=== PATIENT | male | born 1955 | race Caucasian/White ===

== ENCOUNTER 2024-09-17 22:08 | Inpatient (IN) | payer MEDICARE, MEDICAID ==
[~2024-09-17] VITALS: Ht 185.4 cm; Wt 70.9 kg
[2024-09-17 22:48] LABS: BASOPHILS % (AUTO) 0.6 % (0.0-2.0); EOSINOPHILS # (AUTO) 0.1 K/uL (0.0-0.7); EOSINOPHILS % (AUTO) 1.3 % (0.0-7.0); HEMATOCRIT 34.8 % (36.7-47.1); HEMOGLOBIN 11.5 g/dL (12.5-16.3); LYMPHOCYTES # (AUTO) 1.5 K/uL (0.8-4.8); LYMPHOCYTES % (AUTO) 28.5 % (20.5-51.5); MEAN CORPUSCULAR HEMOGLOBIN 29.7 uug (23.8-33.4); MEAN CORPUSCULAR HGB CONC 33 g/dL (32.5-36.3); MEAN CORPUSCULAR VOLUME 89.9 fL (73.0-96.2); MONOCYTES # (AUTO) 0.5 K/uL (0.1-1.30); MONOCYTES % (AUTO) 9.2 % (0.0-11.0); NEUTROPHILS # (AUTO) 3.2 K/uL (1.8-8.9); NEUTROPHILS % (AUTO) 60.4 % (38.5-71.5); PLATELET COUNT (AUTO) 272 K/uL (152-348); RED BLOOD CELL COUNT(AUTO) 3.87 MIL/uL (4.06-5.63); RED CELL DISTRIBUTION WIDTH 12.8 % (12.1-16.2); WHITE BLOOD COUNT (AUTO) 5.2 K/uL (3.6-10.2)
[2024-09-17 22:50] LABS: DIFFERENTIAL COMMENT 1
[2024-09-17 23:00] LABS: CALCIUM 9.3 mg/dL (8.5-10.1); CARBON DIOXIDE 28 mmol/L (21-32); CHLORIDE 107 mmol/L (98-107); CREATININE 1.1 mg/dL (0.6-1.3); GLUCOSE 138 mg/dL (74-106); POTASSIUM 4.1 mmol/L (3.5-5.1); SODIUM SERUM 142 mmol/L (136-145); UREA NITROGEN, BLOOD 27 mg/dL (7-18)
[2024-09-17 23:16] LABS: ALANINE AMINOTRANSFERASE 17 U/L (16-63); ALBUMIN 3.4 g/dL (3.4-5.0); ALKALINE PHOSPHATASE 85 U/L (50-136); ASPARTATE AMINOTRANSFERASE 16 U/L (15-37); BILIRUBIN,TOTAL 0.6 mg/dL (0.2-1.0); NT-PRO BNP 385 pg/mL (0-125)
[2024-09-18] MEDS ORDERED: ACET325T53 PO (00:26)
[2024-09-18] MEDS ORDERED: ASPI-1420 PO (00:27)
[2024-09-18] MEDS ORDERED: ATOR80TA PO (00:29)
[2024-09-18] MEDS ORDERED: CARV12.52 PO (00:30)
[2024-09-18] MEDS ORDERED: CLOP75TA33 PO (00:32)
[2024-09-18] MEDS ORDERED: CYAN-51 PO (00:34)
[2024-09-18] MEDS ORDERED: BISA10SU61 RC (00:35)
[2024-09-18] MEDS ORDERED: NA P133E RC (00:36)
[2024-09-18] MEDS ORDERED: ISOS60TA72 PO (01:17)
[2024-09-18 01:19] LABS: *BILIRUBIN,URIN NEGATIVE (NEGATIVE); *BLOOD, URINE 1+ (NEGATIVE); *CLARITY,URINE CLEAR (CLEAR); *COLOR,URINE YELLOW (YELLOW); *KETONES,URINE NEGATIVE (NEGATIVE); *PROTEIN,URINE TRACE (NEGATIVE); LEUKOCYTE ESTERASE ,URINE NEGATIVE (NEGATIVE); NITRITE, URINE NEGATIVE (NEGATIVE); UGLUCOSE 1+ (NEGATIVE)
[2024-09-18] MEDS ORDERED: LIDO30AD10 TD (01:19)
[2024-09-18] MEDS ORDERED: MEMA21CA2 PO (01:20)
[2024-09-18] MEDS ORDERED: METF-494 PO (01:22)
[2024-09-18] MEDS ORDERED: MAGN400O6 PO (01:25)
[2024-09-18] MEDS ORDERED: POLY119P2 PO (01:26)
[2024-09-18] MEDS ORDERED: NITR0.4T48 SL (01:29)
[2024-09-18] MEDS ORDERED: PANT20TA2 PO (01:35)
[2024-09-18] MEDS ORDERED: RANO500T6 PO (01:36)
[2024-09-18 01:37] LABS: BACTERIA,URINE NONE SEEN /HPF (NONE SEEN); MUCUS,URINE FEW /LPF (0-FEW); RBC,URINE 0-3 /HPF (0-3); SQUAMOUS EPITHELIAL CELL,UR NONE SEEN /HPF (NONE SEEN); WBC,URINE NONE SEEN /HPF (0-3)
[2024-09-18] MEDS ORDERED: TAMS-3 PO (01:38)
[2024-09-18] MEDS ORDERED: ACET325C7 PO (01:42)
[2024-09-18] MEDS: IV NS 1000 ML 1,000 ML IV ONE (02:27)
[2024-09-18] MEDS ORDERED: hydrALAZINE HCL 20 MG/1 ML VIAL ONE (04:48)
[2024-09-18] MEDS ORDERED: MAGNESIUM HYDROXIDE 30 ML LIQUID UDC PO PRN (05:00)
[2024-09-18] MEDS ORDERED: REMEDY ESSENTIAL ZINC PASTE 113 GM TP PRN (05:00)
[2024-09-18] MEDS ORDERED: CEFTRIAXONE /D5W 50ML IVPB **ER PYXIS IV ONE (05:50)
[2024-09-18 05:52] VITALS: BP 140/62; TEMP 97.7; O2SAT 99
[2024-09-18] MEDS: hydrALAZINE HCL 20 MG/1 ML VIAL IV ONE (06:13)
[2024-09-18] MEDS: ACETAMINOPHEN 325 MG TABLET PO PRN (06:33)
[2024-09-18 06:48] LABS: BASOPHILS % (AUTO) 0.6 % (0.0-2.0); EOSINOPHILS # (AUTO) 0.1 K/uL (0.0-0.7); EOSINOPHILS % (AUTO) 1.1 % (0.0-7.0); HEMATOCRIT 37.1 % (36.7-47.1); HEMOGLOBIN 12.6 g/dL (12.5-16.3); LYMPHOCYTES # (AUTO) 1.5 K/uL (0.8-4.8); LYMPHOCYTES % (AUTO) 25.1 % (20.5-51.5); MEAN CORPUSCULAR HEMOGLOBIN 30.4 uug (23.8-33.4); MEAN CORPUSCULAR HGB CONC 34 g/dL (32.5-36.3); MEAN CORPUSCULAR VOLUME 89.8 fL (73.0-96.2); MONOCYTES # (AUTO) 0.5 K/uL (0.1-1.30); MONOCYTES % (AUTO) 8.3 % (0.0-11.0); NEUTROPHILS # (AUTO) 3.8 K/uL (1.8-8.9); NEUTROPHILS % (AUTO) 64.9 % (38.5-71.5); PLATELET COUNT (AUTO) 271 K/uL (152-348); RED BLOOD CELL COUNT(AUTO) 4.13 MIL/uL (4.06-5.63); RED CELL DISTRIBUTION WIDTH 12.8 % (12.1-16.2); WHITE BLOOD COUNT (AUTO) 5.9 K/uL (3.6-10.2)
[2024-09-18 07:00] LABS: DIFFERENTIAL COMMENT 1
[2024-09-18 07:15] LABS: THYROID STIMULATING HORMONE 1.072 mIU/mL (0.358-3.740)
[2024-09-18 07:41] LABS: CALCIUM 9.1 mg/dL (8.5-10.1); CARBON DIOXIDE 27 mmol/L (21-32); CHLORIDE 108 mmol/L (98-107); CREATININE 1.1 mg/dL (0.6-1.3); GLUCOSE 116 mg/dL (74-106); MAGNESIUM 2.1 mg/dL (1.8-2.4); NT-PRO BNP 428 pg/mL (0-125); PHOSPHOROUS 3.1 mg/dL (2.5-4.9); POTASSIUM 3.9 mmol/L (3.5-5.1); SODIUM SERUM 143 mmol/L (136-145); UREA NITROGEN, BLOOD 21 mg/dL (7-18)
[2024-09-18] MEDS: PANTOPRAZOLE SODIUM 40 MG VIAL IV SCH (09:02)
[2024-09-18] MEDS: CEFTRIAXONE 1 G in IV DEXTROSE 5% 50 ML IV ONE (09:02)
[2024-09-18 09:08] VITALS: BP 124/53; TEMP 97.7; O2SAT 100
[2024-09-18] MEDS ORDERED: LIDO1ADH82 TP (10:34)
[2024-09-18] MEDS: MORPHINE SULFATE 2 MG/1 ML DISP.SYRIN IV PRN (12:54)
[2024-09-18] MEDS ORDERED: FLEET ENEMA 133 ML BOTTLE RC PRN (18:15)
[2024-09-18] MEDS ORDERED: NITROGLYCERIN 0.4 MG/TAB BOTTLE SL PRN (18:15)
[2024-09-18] MEDS ORDERED: BISACODYL 10 MG SUPP.RECT RC PRN (18:15)
[2024-09-18] MEDS ORDERED: MIRALAX 17 GM POWD.PACK PO PRN (18:15)
[2024-09-18 20:00] VITALS: BP 145/83; TEMP 98.3; O2SAT 97
[2024-09-18] MEDS: IV NS 1000 ML 1,000 ML IV PRN (20:03)
[2024-09-18] MEDS: LIDOCAINE 5% PATCH TD SCH (20:56)
[2024-09-18] MEDS: MEMANTINE HCL 10 MG TABLET PO SCH (20:56)
[2024-09-18] MEDS: TAMSULOSIN HCL 0.4 MG CAP.SR.24H PO SCH (20:56)
[2024-09-18] MEDS: RANOLAZINE 500 MG TAB.ER.12H PO SCH (20:57)
[2024-09-18] MEDS: CARVEDILOL 6.25 MG TABLET PO SCH (20:57)
[2024-09-18] MEDS: METFORMIN XR 500 MG TAB.SR.24H PO SCH (20:57)
[2024-09-18] MEDS: ATORVASTATIN 40 MG TABLET PO SCH (20:57)
[2024-09-19] VITALS: BP 150/53; TEMP 98; O2SAT 100
[2024-09-19] MEDS: ONDANSETRON 4 MG/2 ML VIAL IV PRN (03:42)
[2024-09-19 04:27] VITALS: BP 155/67; TEMP 98; O2SAT 100
[2024-09-19] MEDS ORDERED: METF-440 PO (07:06)
[2024-09-19 07:34] LABS: BASOPHILS % (AUTO) 0.6 % (0.0-2.0); EOSINOPHILS # (AUTO) 0.1 K/uL (0.0-0.7); EOSINOPHILS % (AUTO) 1.3 % (0.0-7.0); HEMATOCRIT 38.4 % (36.7-47.1); LYMPHOCYTES # (AUTO) 1.3 K/uL (0.8-4.8); LYMPHOCYTES % (AUTO) 22.6 % (20.5-51.5); MEAN CORPUSCULAR HEMOGLOBIN 30.5 uug (23.8-33.4); MEAN CORPUSCULAR HGB CONC 34 g/dL (32.5-36.3); MEAN CORPUSCULAR VOLUME 90.1 fL (73.0-96.2); MONOCYTES # (AUTO) 0.5 K/uL (0.1-1.30); MONOCYTES % (AUTO) 8.3 % (0.0-11.0); NEUTROPHILS # (AUTO) 3.9 K/uL (1.8-8.9); NEUTROPHILS % (AUTO) 67.2 % (38.5-71.5); PLATELET COUNT (AUTO) 264 K/uL (152-348); RED BLOOD CELL COUNT(AUTO) 4.26 MIL/uL (4.06-5.63); RED CELL DISTRIBUTION WIDTH 12.9 % (12.1-16.2); WHITE BLOOD COUNT (AUTO) 5.8 K/uL (3.6-10.2)
[2024-09-19 07:51] LABS: DIFFERENTIAL COMMENT 1
[2024-09-19 07:52] VITALS: BP 147/75; TEMP 97.5; O2SAT 98
[2024-09-19 07:52] LABS: CALCIUM 8.7 mg/dL (8.5-10.1); CARBON DIOXIDE 29 mmol/L (21-32); CHLORIDE 107 mmol/L (98-107); CREATININE 1.1 mg/dL (0.6-1.3); GLUCOSE 121 mg/dL (74-106); MAGNESIUM 2.1 mg/dL (1.8-2.4); PHOSPHOROUS 3.9 mg/dL (2.5-4.9); POTASSIUM 3.8 mmol/L (3.5-5.1); SODIUM SERUM 142 mmol/L (136-145); UREA NITROGEN, BLOOD 17 mg/dL (7-18)
[2024-09-19] MEDS ORDERED: METFORMIN XR 500 MG TAB.SR.24H PO SCH (08:00)
[2024-09-19] MEDS: CLOPIDOGREL 75 MG TABLET PO SCH (08:27)
[2024-09-19] MEDS: ISOSORBIDE MONONITRATE 60 MG TAB.SR.24H PO SCH (08:27)
[2024-09-19] MEDS: ASPIRIN EC 81 MG TABLET.DR PO SCH (08:28)
[2024-09-19] MEDS: METFORMIN HCL 500 MG TABLET PO SCH (08:28)
[2024-09-19] MEDS: CYANOCOBALAMIN 1,000 MCG TABLET PO SCH (08:32)
[2024-09-19] MEDS ORDERED: MEMANTINE HCL 21 MG PO SCH (09:00)
[2024-09-19 12:00] VITALS: BP 133/85; TEMP 97.6; O2SAT 99
[2024-09-19 15:55] VITALS: BP 108/55; TEMP 98.4; O2SAT 100
[2024-09-19 19:00] VITALS: BP 155/74; TEMP 98.2; O2SAT 99
[2024-09-20] VITALS: BP 131/53; TEMP 98.3; O2SAT 95
[2024-09-20 06:00] VITALS: BP 124/76; TEMP 97.7; O2SAT 98
[2024-09-20 08:05] VITALS: BP 168/82; TEMP 98; O2SAT 99
[2024-09-20 12:09] VITALS: BP 110/64; TEMP 97.4; O2SAT 98
[2024-09-20] MEDS: AMLODIPINE 5 MG TABLET PO SCH (14:45)
[2024-09-20 15:46] VITALS: BP 135/63; TEMP 98.7; O2SAT 98
[2024-09-20 19:00] VITALS: BP 173/85; TEMP 97.6; O2SAT 97
[2024-09-21 06:01] VITALS: BP_SYST 145; BP_SYST 163; BP_DIAS 78; BP_DIAS 83; TEMP 97.8; O2SAT 98
[2024-09-21] MEDS: PANTOPRAZOLE SODIUM 40 MG TABLET.DR PO SCH (06:18)
[2024-09-21 07:31] LABS: BASOPHILS % (AUTO) 0.5 % (0.0-2.0); EOSINOPHILS # (AUTO) 0.1 K/uL (0.0-0.7); EOSINOPHILS % (AUTO) 2.3 % (0.0-7.0); HEMATOCRIT 36.7 % (36.7-47.1); HEMOGLOBIN 12.3 g/dL (12.5-16.3); LYMPHOCYTES # (AUTO) 1.3 K/uL (0.8-4.8); LYMPHOCYTES % (AUTO) 23.3 % (20.5-51.5); MEAN CORPUSCULAR HEMOGLOBIN 30.2 uug (23.8-33.4); MEAN CORPUSCULAR HGB CONC 34 g/dL (32.5-36.3); MEAN CORPUSCULAR VOLUME 90.3 fL (73.0-96.2); MONOCYTES # (AUTO) 0.5 K/uL (0.1-1.30); MONOCYTES % (AUTO) 7.9 % (0.0-11.0); NEUTROPHILS # (AUTO) 3.8 K/uL (1.8-8.9); PLATELET COUNT (AUTO) 251 K/uL (152-348); RED BLOOD CELL COUNT(AUTO) 4.07 MIL/uL (4.06-5.63); RED CELL DISTRIBUTION WIDTH 12.9 % (12.1-16.2); WHITE BLOOD COUNT (AUTO) 5.8 K/uL (3.6-10.2)
[2024-09-21 08:08] LABS: DIFFERENTIAL COMMENT 1
[2024-09-21 08:13] LABS: ALANINE AMINOTRANSFERASE 22 U/L (16-63); ALBUMIN 3.1 g/dL (3.4-5.0); ALKALINE PHOSPHATASE 77 U/L (50-136); ASPARTATE AMINOTRANSFERASE 20 U/L (15-37); BILIRUBIN,TOTAL 0.8 mg/dL (0.2-1.0); CALCIUM 8.8 mg/dL (8.5-10.1); CARBON DIOXIDE 29 mmol/L (21-32); CHLORIDE 107 mmol/L (98-107); CREATININE 0.8 mg/dL (0.6-1.3); GLUCOSE 97 mg/dL (74-106); MAGNESIUM 2.1 mg/dL (1.8-2.4); PHOSPHOROUS 3.4 mg/dL (2.5-4.9); POTASSIUM 3.5 mmol/L (3.5-5.1); SODIUM SERUM 143 mmol/L (136-145); TOTAL PROTEIN, SERUM 5.9 g/dL (6.4-8.2); UREA NITROGEN, BLOOD 14 mg/dL (7-18)
[2024-09-21 11:36] VITALS: BP 154/78; TEMP 97.5; O2SAT 98
[2024-09-21 16:00] VITALS: BP 133/76; TEMP 98.4; O2SAT 100
[2024-09-21] MEDS ORDERED: PANT40TA49 PO (17:26)
[2024-09-21] MEDS ORDERED: MENT113O TP (17:26)
[2024-09-21] MEDS ORDERED: ATOR40TA PO (17:26)
[2024-09-21] MEDS ORDERED: AMLO-212 PO (17:26)
== END 2024-09-21 19:12 | DRG 205 ==
LOC: ER 22:17 → MEDSURG3 09-18 04:47 → UNDOADMIN 09-18 04:47 → TELE3 09-18 04:47 → UNDOADMIN 09-20 01:01 → MEDSURG3 09-20 01:01
PROVIDERS: ADMIT Nurse Practitioner Family; ATTEND Internal Medicine
DX: M94.0 Chondrocostal junction syndrome [Tietze] (principal); N17.0 Acute kidney failure with tubular necrosis; D68.59 Other primary thrombophilia; E44.1 Mild protein-calorie malnutrition; F01.A3 Vascular dementia, mild, with mood disturbance; I69.354 Hemiplegia and hemiparesis following cerebral infarction affecting left non-dominant side; R53.1 Weakness; E86.0 Dehydration; I10 Essential (primary) hypertension; I25.10 Atherosclerotic heart disease of native coronary artery without angina pectoris; Z95.1 Presence of aortocoronary bypass graft; Z95.5 Presence of coronary angioplasty implant and graft; R62.7 Adult failure to thrive; Z68.20 Body mass index [BMI] 20.0-20.9, adult; Z74.09 Other reduced mobility; E78.5 Hyperlipidemia, unspecified; E88.09 Other disorders of plasma-protein metabolism, not elsewhere classified; F32.A Depression, unspecified; J44.9 Chronic obstructive pulmonary disease, unspecified; Z87.891 Personal history of nicotine dependence; I69.391 Dysphagia following cerebral infarction; I69.328 Other speech and language deficits following cerebral infarction; R13.10 Dysphagia, unspecified
CPT/HCPCS: 36415; 70450; 71045; 83735; 84100; 84443; 84484; 85025; 86140; 87040; G0378; J0360; J0696; J2270; J2405; J2470; J7040